=== PATIENT | male | born 1950 | race Caucasian/White ===

== ENCOUNTER 2017-09-20 11:29 | Emergency (ER) | payer OTHER ==
[2017-09-20] MEDS ORDERED: ADENOSINE 6 MG/2 ML VIAL IVP ONE (11:37)
[2017-09-20] MEDS ORDERED: NS 1,000 ML IV ONE (11:37)
--- NOTE | 2017-09-20 11:40 | CPEKG ---
Heart Rate: 159 RR Interval: 377 QRSD Interval: 78 QT Interval: 284 QTC Interval: 463 QRS [place]: -42 T Wave [place]: 58 EKG Severity - ABNORMAL ECG - EKG Impression: SUPRAVENTRICULAR TACHYCARDIA EKG Impression: LEFT AXIS DEVIATION EKG Impression: ST DEPRESSION, PROBABLY RATE RELATED Electronically Signed By: Charly Ferguson 20-Sep-2017 12:45:06
--- NOTE | 2017-09-20 11:42 | EDPHY ---
H & P Time Seen by Provider: 09/20/17 11:33 HPI/ROS: HPI Palpitations. 67-year-old male by private vehicle. He reports an hour and a half prior to arrival to the emergency department he developed what he describes as a fast heart rate, palpitations, some shortness of breath and some chest tightness. He denies any chest pain currently. At rest he does not have shortness of breath but he does feel his heart rate beating fast. He has not had the symptoms in the past. He has recently had a viral syndrome involving watery diarrhea and bronchitis which she describes as a intermittent nonproductive cough. ROS: Constitutional: No fever, no chills. No weakness. Eyes: No discharge. No changes in vision. ENT: No sore throat. No nasal congestion or rhinorrhea. Respiratory: As above. Cardiac: As above. Gastrointestinal: No abdominal pain, no vomiting, as above. Genitourinary: No hematuria. No dysuria or increased frequency with urination. Musculoskeletal: No back pain. No neck pain. No myalgias or arthralgias. Skin: No rashes. Neurological: No headache. No focal weakness or altered sensation. Past medical history: Type 1 diabetes. Hypertension for which she takes losartan. Social history: Nonsmoker. No alcohol. Here by himself. Physical Exam: General Appearance: Alert, no distress. This patient is responding to questions appropriately and in full sentences. This patient appears well- hydrated and well-nourished. Eyes: Pupils equal and round no pallor or injection. No lid edema, erythema or injection. Respiratory: There are no retractions, lungs are clear to auscultation with good air movement bilaterally. Cardiovascular: Regular tachycardia. No murmur appreciated. Gastrointestinal: Abdomen is soft and nontender, no masses, bowel sounds normal. No focal tenderness at McBurney's point. No Goetz sign. Neurological: Motor sensory function is grossly intact. Cranial nerves are normal. Gait is normal. Skin: Warm and dry, no rashes. Musculoskeletal: Neck is supple and nontender. Extremities are symmetrical. All joints range without pain or impingement. Psychiatric: No agitation. No depression. Database: EKG: EKG time is 11:34 a.m.; EKG shows a narrow complex tachycardia with ventricular rate of 159. The NM, QRS, QT intervals are within normal limits. Some ST depression noted. There are no ST-T wave changes indicative of ischemic or injury pattern. No evidence of right heart strain. Interpreted by me. EKG time is 11:56 a.m.; EKG shows a narrow complex normal sinus rhythm with a ventricular rate of 95. The NM, QRS, QT intervals are within normal limits. There are no ST-T wave changes indicative of ischemic or injury pattern. No evidence of right heart strain. Interpreted by me. Imaging: Procedures: Emergency department course: IV placed. Vital signs reviewed. Patient's presentation is consistent with SVT. He was started on IV normal saline with 500 cc to be given over the next 30 min. He will be treated with IV adenosine. 11:45 a.m., patient given 6 mg rapid push IV adenosine. He converted to a narrow complex sinus rhythm ventricular rate of 95. Systolic blood pressure post adenosine 157. Discomfort or shortness of breath. EKG will be repeated. He also reports that he has had a recent viral-like illness with watery diarrhea and some bronchitis. He will be given a full L of IV normal saline. 12:30 p.m., blood work reviewed. Leukocytosis present on CBC otherwise electrolytes and CBC unremarkable. Likely this is secondary to his viral syndrome. He has had recent diarrhea and a bronchitis. Repeat pulmonary exam he is clear on auscultation bilaterally. playground monitor shows a narrow complex sinus rhythm with ventricular rate of 88. Blood pressure is normal. Pulse oximetry on room air 97%. He is asymptomatic and reports feeling fine. He feels comfortable going home and I feel he is safe for discharge. I will have him follow up with [facility]. He has seen a continuous washer operator there in the past. Return to emergency department precautions reviewed with him. All of his questions were answered. He was discharged from the emergency department in good condition. Differential Diagnosis: The differential diagnosis on this patient includes but is not limited to SVT. Atrial flutter, atrial fibrillation, acute coronary syndrome, pulmonary embolism unlikely. This represents a partial list of diagnoses considered. These considerations are based on history, physical exam, past history, reassessment and diagnostic testing. Smoking Status: Former smoker Constitutional: Initial Vital Signs Heart Rate 160 H 09/20/17 11:35 Respiratory Rate 14 09/20/17 11:35 Blood Pressure 125/96 H 09/20/17 11:35 O2 Sat (%) 96 05/21/18 11:35 O2 Delivery Mode Room Air Allergies/Adverse Reactions: No Known Allergies Allergy (Verified 09/20/17 11:37) Home Medications: Medication Instructions Recorded Humalog 02/20/15 Lantus 100 UNITS/ML (RX) 02/20/15 Synthroid 02/20/15 Cephalexin [Keflex] 500 mg PO QID #28 cap 03/04/15 Cephalexin [Keflex] 500 mg PO QID #28 cap 03/29/15 Sulfamethox/Tmp 800/160 mg 1 tab PO BID #14 tab 03/29/15 [Bactrim DS] Medical Decision Making - Data Points Laboratory Results: Laboratory Results 09/20/17 11:40 09/20/17 11:40 09/20/17 09/20/17 11:40 11:40 WBC 15.04 10^3/uL H 10^3/uL (3.80-9.50) RBC 5.82 10^6/uL 10^6/uL (4.40-6.38) Hgb 17.3 g/dL g/dL (13.7-17.5) Hct 50.9 % % (40.0-51.0) MCV 87.5 fL fL (81.5-99.8) MCH 29.7 pg pg (27.9-34.1) MCHC 34.0 g/dL g/dL (32.4-36.7) RDW 14.1 % % (11.5-15.2) Plt Count 303 10^3/uL 10^3/uL (150-400) MPV 9.9 fL fL (8.7-11.7) Neut % (Auto) Not Reported Lymph % (Auto) Not Reported Evans % (Auto) Not Reported Eos % (Auto) Not Reported Baso % (Auto) Not Reported Nucleat RBC Rel Count Not Reported Absolute Neuts (auto) Not Reported Absolute Lymphs (auto) Not Reported Absolute Monos (auto) Not Reported Absolute Eos (auto) Not Reported Absolute Basos (auto) Not Reported Absolute Nucleated RBC Not Reported Immature Gran % Not Reported Seg Neutrophils % 70.0 % % Band Neutrophils % 2.0 % % Lymphocytes % 15.0 % % Monocytes % 12.0 % % Eosinophils % 0 % % Basophils % 1.0 % % Metamyelocytes % 0 % % Myelocytes % 0 % % Promyelocytes % 0 % % Blast Cells % 0 % % Immature Gran # Not Reported Absolute Seg Neuts 10.53 10^/uL H 10^/uL (1.70-6.50) Absolute Band Neuts 0.30 10^3/uL 10^3/uL (0.00-0.70) Absolute Lymphocytes 0.30 10^3/uL L 10^3/uL (1.00-3.00) Absolute Monocytes 1.80 10^3/uL H 10^3/uL (0.30-0.80) Absolute Eosinophils 0.00 10^3/uL L 10^3/uL (0.03-0.40) Absolute Basophils 0.15 10^3/uL H 10^3/uL (0.02-0.10) Absolute Metamyelocyte 0.00 10^3/mL 10^3/mL (0.00-0.00) Absolute Myelocytes 0.00 10^3/mL 10^3/mL (0.00-0.00) Absolute Promyelocytes 0.00 10^3/uL 10^3/uL (0.00-0.00) Absolute Plasma Cells 0.00 10^3/uL 10^3/uL (0.00-0.00) RBC/WBC/PLT Morphology NORMAL (NORMAL) Absolute Blast Cells 0.00 10^3/uL 10^3/uL (0.00-0.00) Plasma Cells % 0 % % Platelet Estimate ADEQUATE (ADEQ) Sodium 142 mEq/L mEq/L (135-145) Potassium 4.3 mEq/L mEq/L (3.3-5.0) Chloride 100 mEq/L mEq/L (97-110) Carbon Dioxide 28 mEq/l mEq/l (22-31) Anion Gap 14 mEq/L mEq/L (8-16) BUN 19 mg/dL mg/dL (7-23) Creatinine 0.9 mg/dL mg/dL (0.7-1.3) Estimated GFR > 60 Glucose 116 mg/dL H mg/dL (70-100) Calcium 9.2 mg/dL mg/dL (8.5-10.4) Medications Given: Discontinued Medications Adenosine (Adenosine) 6 mg IVP EDNOW ONE Stop: 09/20/17 11:38 Last Admin: 09/20/17 11:48 Dose: 6 mg Sodium Chloride (Ns) 1,000 mls @ 0 mls/hr IV ONCE ONE PRN Reason: Wide Open Stop: 09/20/17 11:38 Last Admin: 09/20/17 11:40 Dose: 1,000 mls Departure - Departure Disposition: Home, Routine, Self-Care Clinical Impression: SVT (supraventricular tachycardia) Condition: Good Instructions: Supraventricular Tachycardia (ED) Additional Instructions: Read and follow provided instructions. Follow-up with your continuous washer operator or primary care physician within the next 2-3 days for re-evaluation. Call their office for appointment this afternoon. Explain this is for an emergency department follow-up and that you had SVT. Keep yourself well hydrated. No strenuous activity until you have been cleared by your primary care physician or continuous washer operator. Continue your medication as prescribed. Return to the emergency department for return of palpitations, shortness of breath, chest pain or other serious concerns. Referrals: Renae Hammer MD [Primary Care Provider] - As per Instructions [facility] [Provider Group] - As per Instructions
--- NOTE | 2017-09-20 11:59 | CPEKG ---
Heart Rate: 96 RR Interval: 625 P-R Interval: 192 QRSD Interval: 94 QT Interval: 364 QTC Interval: 460 P [place]: -54 QRS [place]: -13 T Wave [place]: 50 EKG Severity - OTHERWISE NORMAL ECG - EKG Impression: SINUS OR ECTOPIC ATRIAL RHYTHM Electronically Signed By: Charly Ferguson 20-Sep-2017 12:45:06
[2017-09-20 12:11] LABS: PLATELET COUNT 303 10^3/uL (150-400)
[2017-09-20 16:01] VITALS: BP 129/64
== END 2017-09-20 12:51 | disposition home or self-care (01) ==
LOC: CED 11:29
DX: I47.1 Supraventricular tachycardia (principal); E10.9 Type 1 diabetes mellitus without complications; I10 Essential (primary) hypertension
CPT/HCPCS: 93005; 96361; 96374; 99284; J0153; 80048-PO; 85025-PO

== ENCOUNTER 2017-10-25 09:12 | Emergency (ER) | payer OTHER ==
--- NOTE | 2017-10-25 09:36 | EDPHY ---
H & P Time Seen by Provider: 10/25/17 09:28 HPI/ROS: CHIEF COMPLAINT: Left rib pain HISTORY OF PRESENT ILLNESS: Patient is a 67-year-old male with history of hypertension who presents emergency department with left rib pain. The patient states on Wednesday he was chasing his grandchild. He tripped and fell. He hit his ribs on the ground. He now has ongoing moderate rib pain. He took some leftover pain pills over the weekend because he was [place] for family reunion. He has ongoing pain today. He has discomfort with deep breath. He does not feel short of breath. No cough. No hemoptysis. No nausea vomiting. No abdominal pain. No lightheadedness or dizziness. REVIEW OF SYSTEMS: My complete review of systems is negative except as mentioned in the HPI. Past Medical/Surgical History: Includes hypertension Smoking Status: Former smoker Physical Exam: Vitals noted GENERAL: Well-appearing, in no acute distress, alert. HEAD: No evidence of trauma. EYES: PERRLA, EOMI, normal to inspection. ENT: Airway intact, normal external examination. NECK: The C-spine is nontender. NEXUS criteria is negative (no midline tenderness, no distracting injury, no altered mental status, no recent alcohol use, no focal neurologic deficit). RESPIRATORY: Mild left lateral rib tenderness palpation. No crepitus. Clear to auscultation bilaterally, no rales, rhonchi or wheezing. No rash CVS: Regular rate and rhythm, no rubs, murmurs, or gallops. ABDOMEN: Soft, nontender, nondistended. BACK: Normal to inspection, no spinal tenderness, no spinal step off, no notable bruising or abrasions. SKIN: Normal color, warm, dry. No pallor or diaphoresis. EXTREMITIES: Patient has an abrasion on his left hand. There is no bony tenderness palpation. Full range of motion. He was all extremities. He ambulates without difficulty. NEURO/PSYCH: Alert and oriented x 3, GCS 15, normal mood and affect, normal motor sensory exam. Constitutional: Initial Vital Signs Temperature (C) 36.6 C 10/25/17 09:19 Heart Rate 72 10/25/17 09:19 Respiratory Rate 18 10/25/17 09:19 Blood Pressure 170/70 H 10/25/17 09:19 O2 Sat (%) 97 10/25/17 09:19 O2 Delivery Mode Room Air Allergies/Adverse Reactions: No Known Allergies Allergy (Verified 10/25/17 09:17) Home Medications: Medication Instructions Recorded Humalog 02/20/15 Lantus 100 UNITS/ML (RX) 02/20/15 Synthroid 02/20/15 Losartan Potassium [Cozaar 25 mg 10/25/17 (*)] Medical Decision Making - Diagnostics Imaging Results: Imaging Impressions Chest X-Ray 10/25/17 09:31 Impression: 1. 3 left rib fractures without pneumothorax or pleural effusion. 2. Irregular right upper lobe density. Recommend chest CT for further evaluation. 3. Cardiac megaly with pulmonary venous hypertension. Results discussed with Dr. Anguiano at 9:50 AM. ED Course/Re-evaluation: In the emergency department I discussed possible etiologies with the patient. I answered all his questions. An x-ray of the chest was ordered. Chest x-ray: Please refer the dictated report. Patient has left posterior rib fractures. Patient also has a spiculated mass in the right upper lobe. Dr. Crespo recommended CT imaging. Discussed results with the patient. He consented to IV placement, laboratory studies and CT imaging with contrast. Patient's CBC was unremarkable. The patient's chemistry panel was was notable for mildly elevated glucose. Patient states he has diabetes any requested that he take his regularly dosed insulin because he ate some crackers in the emergency department. CT angio chest: Please refer the dictated report. Patient has 2 rib fractures with small lesion. There is no pneumothorax. No pulmonary embolus. There is no noted mass. I discussed the results with the patient. Answered all his questions. He was given warnings. He is given incentive spirometer. Differential Diagnosis: My differential includes but is not limited to rib fracture, pulmonary contusion , pneumothorax, hemothorax, mass, malignancy, PE - Data Points Laboratory Results: 10/25/17 10:15 POC Sodium 138 mEq/L mEq/L (135-145) POC Potassium 4.4 mEq/L mEq/L (3.3-5.0) POC Chloride 102.0 mEq/L mEq/L (97-110) POC Total CO2 26 mEq/L mEq/L (22-31) POC BUN 14 mg/dL mg/dL (7-23) POC Creatinine 0.9 mg/dL mg/dL (0.7-1.3) POC Glucose 155 mg/dL H mg/dL (70-100) POC Calcium 9.5 mg/dL mg/dL (8.5-10.4) Medications Given: Discontinued Medications Hydrocodone Bitart/Acetaminophen ([place] 5/325) 2 tab PO EDNOW ONE Stop: 10/25/17 10:22 Last Admin: 10/25/17 10:25 Dose: 2 tab Insulin Human Regular (Humulin R) 4 unit SC EDNOW ONE Stop: 10/25/17 10:42 Last Admin: 10/25/17 10:49 Dose: 4 units Point of Care Test Results: CBC CBC Collection Date 10/25/17 CBC Collection Time 10:03 WBC 9.7 RBC 5.32 HGB 15.9 HCT 47.8 PLT 308 Neut # 6.2 Neut 64.3 LYMPH # 1.7 LYMPH 17.1 Other WBC # 1.8 Other WBC 18.6 MCV 89.8 Chemistry 10/25/17 10:15 POC Sodium 138 mEq/L mEq/L (135-145) POC Potassium 4.4 mEq/L mEq/L (3.3-5.0) POC Chloride 102.0 mEq/L mEq/L (97-110) POC Total CO2 26 mEq/L mEq/L (22-31) POC BUN 14 mg/dL mg/dL (7-23) POC Creatinine 0.9 mg/dL mg/dL (0.7-1.3) POC Glucose 155 mg/dL H mg/dL (70-100) POC Calcium 9.5 mg/dL mg/dL (8.5-10.4) Departure - Departure Disposition: Home, Routine, Self-Care Clinical Impression: Rib contusion Qualifiers: Encounter type: initial encounter Laterality: left Qualified Code(s): S20.212A - Contusion of left front wall of thorax, initial encounter Rib fractures Qualifiers: Encounter type: initial encounter Rib fracture type: multiple ribs Fracture type: closed Laterality: left Qualified Code(s): S22.42XA - Multiple fractures of ribs, left side, initial encounter for closed fracture Condition: Good Instructions: Rib Contusion (ED), Rib Fracture (ED) Additional Instructions: Use your incentive spirometer 5 times daily. Return with increasing pain, shortness of breath, fever or any other concerns. Your CT scan showed broken ribs but no abnormality such as mass or pneumothorax. Referrals: Renae Hammer MD [Primary Care Provider] - 2-3 days without fail
[2017-10-25] MEDS ORDERED: HYDROCODONE/APAP 5/325 TAB PO ONE (10:21)
[2017-10-25] MEDS ORDERED: IOPAMIDOL (ISOVUE 370) 100 ML BTL IV ONE (10:35)
[2017-10-25] MEDS ORDERED: INSULIN REGULAR HUMAN 100 UNIT/ML UNIT SC ONE (10:41)
[2017-10-25 12:08] VITALS: BP 176/85
== END 2017-10-25 12:04 | disposition home or self-care (01) ==
LOC: CED 09:12
DX: S22.42XA Multiple fractures of ribs, left side, initial encounter for closed fracture (principal); S20.212A Contusion of left front wall of thorax, initial encounter; I10 Essential (primary) hypertension; Z87.891 Personal history of nicotine dependence; Z79.4 Long term (current) use of insulin; W01.198A Fall on same level from slipping, tripping and stumbling with subsequent striking against other object, initial encounter; Y99.8 Other external cause status; Y93.89 Activity, other specified
CPT/HCPCS: 71046; 71275; 96372; 99285; Q9967; 80048-PO; J1815